=== PATIENT | female | born 1960 | race Hispanic/Latino ===

== ENCOUNTER 2022-07-17 20:04 | Emergency (ER) | payer BC ==
[~2022-07-17] VITALS: Ht 154.9 cm; Wt 102.5 kg
[2022-07-17 23:37] LABS: BASOPHILS % (AUTO) 0.6 % (0.0-5.0); EOSINOPHILS % (AUTO) 0.8 % (0.0-8.0); HEMATOCRIT 39.2 % (36-48); LYMPHOCYTES % (AUTO) 25.8 % (21.0-51.0); MEAN CORPUSCULAR HEMOGLOBIN 27.1 pg (27.0-33.0); MEAN CORPUSCULAR HGB CONC 31.9 g/dL (32.0-36.0); MEAN CORPUSCULAR VOLUME 84.8 fL (79-99); NEUTROPHILS % (AUTO) 64.3 % (40.0-77.0); PLATELET COUNT (AUTO) 190 K/uL (130-400); RED BLOOD CELL COUNT(AUTO) 4.62 MIL/uL (4.00-5.50); WHITE BLOOD COUNT (AUTO) 8.8 K/uL (4.8-10.8)
[2022-07-17 23:47] LABS: INR 0.96 (0.85-1.15); PROTHROMBIN TIME 10.5 SEC (9.6-11.6)
[2022-07-17 23:48] LABS: PARTIAL THROMBOPLASTIN TIME 29.4 SEC (26.3-35.5)
[2022-07-17 23:53] LABS: CREATININE 1.4 mg/dL (0.5-1.5); POTASSIUM 3.8 mmol/L (3.5-5.1)
[2022-07-17 23:53] LABS: BILIRUBIN,URINE NEGATIVE (NEGATIVE); COLOR,URINE YELLOW (YELLOW); GLUCOSE, URINE (UA) NEGATIVE (NEGATIVE); KETONES,URINE NEGATIVE (NEGATIVE); LEUKOCYTE ESTERASE ,URINE NEGATIVE Leu/uL (NEGATIVE); NITRATE,URINE NEGATIVE (NEGATIVE); OCCULT BLOOD,URINE NEGATIVE (NEGATIVE); PROTEIN,URINE 30 mg/dL (NEGATIVE)
[2022-07-17 23:54] LABS: APPEARANCE,URINE SLIGHTLY CLOUDY (CLEAR)
[2022-07-17 23:55] LABS: MUCUS,URINE RARE LPF (None Seen); RBC,URINE 0-1 /HPF (0-1); SQUAMOUS EPITHELIAL CELL,UR RARE /HPF (0-2)
[2022-07-17 23:58] LABS: ALBUMIN 3.6 g/dL (3.5-5.0)
[2022-07-18] MEDS ORDERED: METH4TAB3 PO (02:36)
[2022-07-18 02:37] VITALS: BP 114/53
[2022-07-18] MEDS ORDERED: SOLU-MEDROL 125MG VIAL IM ONE (03:00)
== END 2022-07-18 02:57 | disposition home or self-care (01) ==
LOC: EDH 20:04
DX: S29.011A Strain of muscle and tendon of front wall of thorax, initial encounter (principal); M94.0 Chondrocostal junction syndrome [Tietze]; E66.01 Morbid (severe) obesity due to excess calories; E78.00 Pure hypercholesterolemia, unspecified; I10 Essential (primary) hypertension; Z90.710 Acquired absence of both cervix and uterus; Z20.822 Contact with and (suspected) exposure to COVID-19; Z68.41 Body mass index [BMI] 40.0-44.9, adult; X58.XXXA Exposure to other specified factors, initial encounter; Y93.89 Activity, other specified; Y92.89 Other specified places as the place of occurrence of the external cause; Y99.8 Other external cause status
CPT/HCPCS: 99284; 87635; 82550; 84484; 80053; 85025; 85610; 85730; 87040 ×2; 87088; 87880; 87804 ×2; 83605; 81001; 36415; 93005; 96372; C9803; J2930

== ENCOUNTER → 2023-08-31 | Outpatient (CLI) | payer OTHER ==
[~2023-08-31] MED LIST: FLUC200T PO; HYDR-4060 PO; METH4TAB3 PO; ONDA-243 PO; TAMS-1 PO
== END | disposition home or self-care (01) ==
LOC: RAH 10:00
PROVIDERS: ATTEND Internal Medicine
DX: I70.1 Atherosclerosis of renal artery (principal); N32.89 Other specified disorders of bladder; N21.0 Calculus in bladder; I73.9 Peripheral vascular disease, unspecified; I10 Essential (primary) hypertension
CPT/HCPCS: 76770; 93925; 93975

== ENCOUNTER → 2023-09-21 | Outpatient (CLI) | payer OTHER ==
[2023-09-21 23:02] VITALS: PULSE 72; RESP 28
[2023-09-21 23:30] VITALS: PULSE 74; RESP 26
[2023-09-22] VITALS (10 sets, daily range): PULSE 64–72; RESP 20–26
== END | disposition home or self-care (01) ==
LOC: SLP 20:53
PROVIDERS: ATTEND Internal Medicine
DX: G47.33 Obstructive sleep apnea (adult) (pediatric) (principal); G47.10 Hypersomnia, unspecified
CPT/HCPCS: 95810

== ENCOUNTER → 2023-10-01 | Outpatient (CLI) | payer OTHER ==
[2023-10-01] VITALS (8 sets, daily range): PULSE 59–65; RESP 17–25
[2023-10-02] VITALS (13 sets, daily range): PULSE 58–74; RESP 16–26
== END | disposition home or self-care (01) ==
LOC: SLP 20:38
PROVIDERS: ATTEND Internal Medicine
DX: G47.10 Hypersomnia, unspecified (principal); R09.02 Hypoxemia; E66.9 Obesity, unspecified; R06.83 Snoring
CPT/HCPCS: 95811